=== PATIENT | female | born 1990 | race African-American/Black ===

== ENCOUNTER 2020-07-18 00:42 | Emergency (ER) | payer OTHER ==
[~2020-07-18] VITALS: Ht 152.4 cm; Wt 54.4 kg
[2020-07-18 01:29] LABS: URINE BILIRUBIN NEGATIVE (Negative); URINE BLOOD NEGATIVE (Negative); URINE CLARITY CLOUDY; URINE COLOR YELLOW; URINE GLUCOSE-RANDOM* NEGATIVE (Negative); URINE KETONES NEGATIVE (Negative); URINE NITRITE-REFLEX NEGATIVE (Negative); URINE PROTEIN (DIPSTICK) TRACE (Negative); URINE UROBILINOGEN 0.2 E.U./dl (0.2-1.0)
[2020-07-18 01:32] LABS: URINE LEUKOCYTES-REFLEX 1+ (Negative)
[2020-07-18 01:39] LABS: BACTERIA-REFLEX >30 Many /HPF (None Seen); CASTS None Seen /LPF (None Seen); CRYSTALS None Seen /LPF (None Seen); MUCUS 4-6 Moderate strn/LPF (None Seen); SQUAMOUS 4-10 Moderate /LPF (0-3); URINE RBC 3-10 Few /HPF (0-2)
[2020-07-18] MEDS ORDERED: KEFLEX500 M1 PO (01:53)
[2020-07-18 01:59] VITALS: BP 110/72
== END 2020-07-18 01:59 | disposition home or self-care (01) ==
LOC: ER 00:42
PROVIDERS: Emergency Medicine
DX: N39.0 Urinary tract infection, site not specified (principal); J45.909 Unspecified asthma, uncomplicated; F17.210 Nicotine dependence, cigarettes, uncomplicated; Z91.040 Latex allergy status

== ENCOUNTER 2021-10-21 19:18 | Emergency (ER) | payer OTHER ==
[~2021-10-21] VITALS: Ht 149.9 cm; Wt 59.0 kg
[~2021-10-21 19:18] MED LIST: KEFLEX500 M1 PO
[2021-10-21 19:23] VITALS: BP 104/64
== END 2021-10-21 21:26 | disposition home or self-care (01) ==
LOC: ER 19:18
DX: Z46.6 Encounter for fitting and adjustment of urinary device (principal); J45.909 Unspecified asthma, uncomplicated; F17.210 Nicotine dependence, cigarettes, uncomplicated; Z91.040 Latex allergy status

== ENCOUNTER 2021-11-07 22:50 | Emergency (ER) | payer OTHER ==
[~2021-11-07] VITALS: Ht 152.4 cm; Wt 59.0 kg
[2021-11-08 00:12] VITALS: BP 111/65
== END 2021-11-08 00:13 | disposition home or self-care (01) ==
LOC: ER 22:50
DX: T83.098A Other mechanical complication of other urinary catheter, initial encounter (principal); J45.909 Unspecified asthma, uncomplicated; F17.210 Nicotine dependence, cigarettes, uncomplicated; Z91.040 Latex allergy status; Z88.8 Allergy status to other drugs, medicaments and biological substances

== ENCOUNTER → 2021-12-03 | Outpatient (CLI) | payer OTHER | LOC: HYPER 12:40 | PROVIDERS: ATTEND Emergency Medicine | DX: L89.623 Pressure ulcer of left heel, stage 3 (principal); Q05.9 Spina bifida, unspecified; Z87.891 Personal history of nicotine dependence; Z79.899 Other long term (current) drug therapy; Z99.3 Dependence on wheelchair; Z89.422 Acquired absence of other left toe(s) ==

== ENCOUNTER → 2021-12-12 | Outpatient (CLI) | payer OTHER | LOC: HYPER 08:19 | PROVIDERS: ATTEND Emergency Medicine | DX: L89.623 Pressure ulcer of left heel, stage 3 (principal); Q05.9 Spina bifida, unspecified; Z87.891 Personal history of nicotine dependence; Z99.3 Dependence on wheelchair; Z89.422 Acquired absence of other left toe(s) ==